=== PATIENT | female | born 1945 | race Caucasian/White ===

== ENCOUNTER 2017-06-25 19:28 | Emergency (ER) | payer OTHER ==
--- NOTE | 2017-06-25 21:12 | EDPHY ---
H & P Stated Complaint: fell, left elbow LAC, rib pain Time Seen by Provider: 06/25/17 19:59 HPI/ROS: CHIEF COMPLAINT: Mechanical fall, left elbow laceration, mild left elbow pain, left rib pain HISTORY OF PRESENT ILLNESS: The patient presents to the ED after she sustained a mechanical fall while walking this evening. The patient sustained a laceration to her left elbow and complains of mild left elbow pain and left rib pain. The patient did not strike her head or lose consciousness. She has no complaints of headache, neck pain, abdominal pain or additional extremity complaints. The patient is not anticoagulated. The patient denies significant past medical history. The patient denies antecedent chest pain, palpitations or shortness of breath. REVIEW OF SYSTEMS: A comprehensive 10 point review of systems is otherwise negative aside from elements mentioned in the history of present illness. Source: Patient Exam Limitations: No limitations - Personal History Current Tetanus Diphtheria and Acellular Pertussis (TDAP): Yes - Medical/Surgical History Hx Asthma: No Hx Chronic Respiratory Disease: No Hx Diabetes: No Hx Cardiac Disease: Yes Hx Renal Disease: No Hx Cirrhosis: No Hx Alcoholism: No Hx HIV/AIDS: No Hx Splenectomy or Spleen Trauma: No Other PMH: cardiac stents x 2 2013. hypertension, high cholesterol. cataracts. hysterectomy - Social History Smoking Status: Former smoker - Physical Exam Exam: General Appearance: Alert, no distress Head: Atraumatic Eyes: Pupils equal, round, reactive ENT, Mouth: No hemotympanum, no oral trauma Neck: Nontender, trachea midline Respiratory: Tenderness to palpation left anterior chest wall Cardiovascular: Regular rate and rhythm Abdomen: Abdomen is soft and nontender, pelvis stable Skin: 5 cm laceration noted just distal to the left elbow Back: No midline T/L/S pain Extremities: Mild tenderness to palpation over the left radial head, no hematoma, laceration involving left proximal forearm without evidence of obvious joint space involvement Neurological: A&Ox3, normal motor function, normal sensory exam Constitutional: Initial Vital Signs Temperature (C) 36.9 C 06/25/17 19:34 Heart Rate 107 H 06/25/17 19:34 Respiratory Rate 20 06/25/17 19:34 Blood Pressure 162/77 H 06/25/17 19:34 O2 Sat (%) 97 06/25/17 19:34 O2 Delivery Mode Room Air Allergies/Adverse Reactions: Penicillins Allergy (Verified 12/13/17 19:33) phenobarbital Allergy (Verified 06/25/17 19:33) Home Medications: Medication Instructions Recorded Lipitor 06/25/17 Metoprolol Tartrate 06/25/17 Medical Decision Making - Diagnostics Imaging Results: Chest x-ray PA/lateral: Two view study images reviewed by myself, negative for rib fracture or pneumothorax by my interpretation. Left elbow x-ray: Three view, images reviewed by myself, negative for acute fracture. Procedures: Procedure: Laceration repair. Verbal consent was obtained from the patient. The 5 cm laceration on the left arm was anesthetized using lidocaine with epinephrine. The wound was irrigated per protocol, draped and explored to its base with a gloved finger. There were no deep structures involved. The wound was repaired with 12 4-0 Prolene sutures. The wound repair was simple. The procedure was performed by myself. ED Course/Re-evaluation: The patient presents to the ED after a mechanical fall. She had no antecedent chest pain, palpitations or shortness of breath. She is noted to be neurologically intact upon arrival. The patient was taken for a chest x-ray and left elbow x-ray which demonstrate no evidence of an obvious rib fracture, pneumothorax or fracture by my interpretation. The patient had her wound copiously irrigated after local anesthesia with lidocaine and epinephrine. There is no evidence of joint space involvement. It did involve the bursa. The laceration was repaired with 4 0 Prolene sutures. The patient will be discharged home with a prescription for Keflex given the bursal involvement. Plan will be for suture removal in 14 days. The patient is instructed to return to the ED for any increasing pain, redness, swelling or fever. She is given customary aftercare instructions and return precautions. Differential Diagnosis: Differential diagnosis considered includes open fracture, closed fracture, neurovascular injury, rib fracture, pneumothorax, laceration Departure - Departure Disposition: Home, Routine, Self-Care Clinical Impression: Chest wall contusion, Laceration of left upper arm Condition: Good Instructions: Laceration (ED) Additional Instructions: 1. Take antibiotics as directed for next 7 days. 2. Return to the ED for any increasing pain, redness, swelling or discharge. 3. Return to the ED in 14 days for suture removal. 4. Apply antibiotic ointment to sutures twice daily. Referrals: MILKA CORDOVA [Other] - As per Instructions
[2017-06-25] MEDS ORDERED: CEPHALEXIN 500 MG CAP PO ONE (21:16)
[2017-06-25 21:46] VITALS: BP 129/68
[2017-06-25 21:47] VITALS: PULSE 66; RESP 16; TEMP 98.2; O2SAT 95
== END 2017-06-25 21:46 | disposition home or self-care (01) ==
PROC: 0HQCXZZ Repair Left Upper Arm Skin, External Approach (ICD-10-PCS; principal; 2017-06-25)
DX: S20.212A Contusion of left front wall of thorax, initial encounter (principal); S41.112A Laceration without foreign body of left upper arm, initial encounter; I10 Essential (primary) hypertension; Z95.5 Presence of coronary angioplasty implant and graft; Z87.891 Personal history of nicotine dependence; W18.39XA Other fall on same level, initial encounter; Y99.8 Other external cause status; Y93.01 Activity, walking, marching and hiking